=== PATIENT | female | born 2000 | race Caucasian/White ===

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

== ENCOUNTER 2023-04-25 09:44 | Emergency (ER) | payer BC, MEDICAID ==
[~2023-04-25] VITALS: Ht 165.1 cm; Wt 57.1 kg
[2023-04-25 10:12] VITALS: BP 147/78; PULSE 93; RESP 18; TEMP 98.7; O2SAT 98
[2023-04-25] MEDS ORDERED: NAPR-746 PO (10:41)
== END 2023-04-25 10:47 | disposition home or self-care (01) ==
LOC: ER 09:44
DX: S63.91XA Sprain of unspecified part of right wrist and hand, initial encounter (principal); W22.8XXA Striking against or struck by other objects, initial encounter; Y93.89 Activity, other specified; Y92.89 Other specified places as the place of occurrence of the external cause; Y99.8 Other external cause status
CPT/HCPCS: 73130